=== PATIENT | female | born 1995 | race Caucasian/White ===

== ENCOUNTER 2017-06-19 14:12 | Emergency (ER) | payer OTHER ==
[~2017-06-19] VITALS: Ht 162.6 cm; Wt 74.5 kg
[~2017-06-19 14:12] MED LIST: FERR27TA PO; [UNRECOGNIZED DRUG - OTHER]
[2017-06-19 14:16] VITALS: Ht 162.6 cm; Wt 74.5 kg
[2017-06-19] MEDS ORDERED: HYDROCODONE/APAP (5/325) TAB PO ONE (16:30)
[2017-06-19] MEDS ORDERED: predniSONE 20 MG TAB PO ONE (16:30)
--- NOTE | 2017-06-19 17:15 | ERD ---
ER Documentation Chief Complaint Date/Time DATE: 06/19/17 TIME: 17:09 Chief Complaint Complains of back that radiates to back of leg HPI This is a 21-year-old female who presents the emergency department today complaining of back pain for the past week that goes into her buttocks. States that in October she had something similar and she attributed it to using crutches. Denies any fevers or chills, loss of bowel or bladder control. States that she took Tylenol earlier on in the week but did not help so she stopped taking medication. ROS All systems reviewed and are negative except as per history of present illness. Medications Home Meds Active Scripts Prednisone* (Prednisone*) 20 Mg Tab, 40 MG PO DAILY for 4 Days, TAB Prov:BONNIE DE LA CRUZ PA-C 06/19/17 Tramadol HCl (Tramadol HCl) 50 Mg Tablet, 50 MG PO Q4 Y for PAIN, #20 TAB Prov:BONNIE DE LA CRUZ PA-C 06/19/17 Cyclobenzaprine Hcl* (Cyclobenzaprine Hcl*) 10 Mg Tablet, 10 MG PO QHS, #7 TAB Prov:BONNIE DE LA CRUZ PA-C 06/19/17 Naproxen* (Naprosyn*) 500 Mg Tablet, 500 MG PO BID Y for PAIN AND/OR INFLAMMATION, #30 TAB Prov:BONNIE DE LA CRUZ PA-C 06/19/17 Reported Medications Ferrous Sulfate (Iron) 1 Tab Tablet, 1 TAB PO BID 12/19/12 Pn Vit.w-O Ca #7, Iron,Fa,Dha (Elite Ob Softgel) 1 Cap Capsule 11/05/10 Allergies Allergies: Coded Allergies: Penicillins (Verified Allergy, Mild, RASH, 12/20/10) PMhx/Soc History of Surgery: No Anesthesia Reaction: No Hx Neurological Disorder: No Hx Respiratory Disorders: No Hx Cardiac Disorders: No Hx Psychiatric Problems: No Hx Miscellaneous Medical Probl: No Hx Alcohol Use: No Hx Substance Use: No Hx Tobacco Use: No Physical Exam Vitals Vital Signs Date Time Temp Pulse Resp B/P Pulse Ox O2 Delivery O2 Flow Rate FiO2 06/19/17 14:16 98.7 87 20 124/71 100 Physical Exam Const: NAD Head: Atraumatic Eyes: Normal Conjunctiva ENT: Normal External Ears, Nose and Mouth. Neck: Full range of motion..~ No meningismus. Resp: Clear to auscultation bilaterally Cardio: Regular rate and rhythm, no murmurs Abd: Soft, non tender, non distended. Normal bowel sounds Skin: No petechiae or rashes Back: Lumbar and sacral spine midline tenderness and bilateral paraspinal tenderness. Pulses 2+. Distal neurovascularly intact. Ext: No cyanosis, or edema Neur: Awake and alert Psych: Normal Mood and Affect Results 24 hrs Laboratory Tests Test 06/19/17 17:24 Bedside Urine pH (LAB) 5.5 Bedside Urine Protein (LAB) 1+ Bedside Urine Glucose (UA) Negative Bedside Urine Ketones (LAB) Trace Bedside Urine Blood Negative Bedside Urine Nitrite (LAB) Negative Bedside Urine Leukocyte Esterase (L Negative Current Medications Medications (Trade) Dose Ordered Sig/Lorna Route PRN Reason Start Time Stop Time Status Last Admin Dose Admin Acetaminophen/ Hydrocodone Bitart (Callao (5/325)) 1 tab ONCE ONCE PO 06/19/17 16:30 06/19/17 16:31 DC 06/19/17 17:20 Prednisone (Prednisone) 60 mg ONCE ONCE PO 06/19/17 16:30 06/19/17 16:31 DC 06/19/17 17:19 DIAGNOSTIC IMAGING REPORT Patient: ISAIAS JUNIOR : 1995 Age: 21 Sex: F MR #: [id number] DOS: 06/19/17 0000 Ordering MD: BONNIE DE LA CRUZ PA-C Location: [facility] Room/Bed: PROCEDURE: XR Lumbar Spine. CLINICAL INDICATION: Back pain. Radicular symptoms. TECHNIQUE: X-ray of the lumbar spine were performed including AP, lateral, and coned L5-S1 views was performed. COMPARISON: No prior studies are available for comparison. FINDINGS: SCOLIOSIS: Minimal levoscoliosis. SEGMENTATION: There are 5 non-rib bearing lumbar vertebral bodies. LORDOSIS: Within normal limits. VERTEBRAL BODY HEIGHTS: Maintained without evidence of compression fracture. ALLIGNMENT: There is trace retrolisthesis of L4-5. DISCS: There is mild L5-S1 disc space narrowing. OSSEOUS STRUCTURES: There is no destructive osseous lesion. SACRUM: The bilateral sacroiliac joints are intact. There is a 4 cm oval calcification to the right of the L1 vertebral body with a few adjacent calcifications which are indeterminate. IMPRESSION: No evidence of compression fracture. Minimal levoscoliosis. L4-5 trace retrolisthesis. L5-S1 mild disc space narrowing. There is a 4 cm oval calcification to the right of the L1 vertebral body with a few adjacent calcifications which are indeterminate. Further findings as detailed above. RPTAT: PP .Tino Martin MD, Date Time Electronically viewed and signed by .Tino Martin MD, on 06/19/2017 18:18 .F/ CC: BONNIE DE LA CRUZ PA-C Procedures/MDM This is a 21-year-old female who presents the emergency department today complaining of back pain for the past week. Patient has had history of this similar type pain in the past however patient was complaining of pain into her buttocks and therefore I did offer to obtain images. UA is negative for infection urine test is negative Per the radiology report images of the lumbar spine evidence of acute fracture, compression fracture dislocation. There is mild L5-S1 disc space narrowing. There is a 4 7 m oval calcification in the right of the L1 vertebral body with a few adjacent calcifications which are indeterminate. Images at this time is consistent with sprain versus strain and likely sciatic related pain however her pain may also be due to her disc space narrowing. I have explained this to the patient. I would splint to the patient that she does need a follow-up with a primary care doctor for possible referral to orthopedic designer and physical therapy. Low suspicion for acute fracture or dislocation. Patient is afebrile and otherwise well-appearing. Low suspicion for cauda equina or abscess. Patient declined Toradol here in the emergency department. She was therefore given Callao and prednisone. She will given a prescription for short course of tramadol, Naprosyn, Flexeril, prednisone for home. Started to follow-up with her primary care doctor for referral to orthopedic designer or physical therapy At this time the patient is stable for discharge and outpatient management. Patient should follow up with their PCP in the next 1-2 days. They may return to the emergency department sooner for any persistent or worsening of symptoms. Patient understood and agreed with the plan. Discussed the patient with Dr. Bethea and he is in agreement with the plan. Departure Diagnosis: Primary Impression: Back pain Back pain location: low back pain Chronicity: acute Back pain laterality: bilateral Sciatica presence: with sciatica Sciatica laterality: bilateral sciatica Qualified Code: M54.42 - Acute bilateral low back pain with bilateral sciatica Condition: BONNIE Goins PA-C Jun 19, 2017 17:15
[2017-06-19 17:16] LABS: URINE BLOOD (Dip) POC Negative (NEGATIVE)
--- NOTE | 2017-06-19 18:18 | RADRPT ---
PROCEDURE: XR Lumbar Spine. CLINICAL INDICATION: Back pain. Radicular symptoms. TECHNIQUE: X-ray of the lumbar spine were performed including AP, lateral, and coned L5-S1 views w as performed. COMPARISON: No prior studies are available for comparison. FINDINGS: SCOLIOSIS: Minimal levoscoliosis. SEGMENTATION: There are 5 non-rib bearing lumbar vertebral bodies. LORDOSIS: Within normal limits. VERTEBRAL BODY HEIGHTS: Maintained without evidence of compression fracture. ALLIGNMENT: There is trace retrolisthesis of L4-5. DISCS: There is mild L5-S1 disc space narrowing. OSSEOUS STRUCTURES: There is no destructive osseous lesion. SACRUM: The bilateral sacroiliac joints are intact. There is a 4 cm oval calcification to the right of the L1 vertebral body with a few adjacent calcifications which are indeterminate. IMPRESSION: No evidence of compression fracture. Minimal levoscoliosis. L4-5 trace retrolisthesis. L5-S1 mild disc space narrowing. There is a 4 cm oval calcification to the right of the L1 vertebral body with a few adjacent calcifi cations which are indeterminate. Further findings as detailed above. RPTAT: PP .Tino Martin MD, Date Time Electronically viewed and signed by .Tino Martin MD, on 06/19/2017 18:18 .F/
[2017-06-19] MEDS ORDERED: CYCL-319 PO (18:32)
[2017-06-19] MEDS ORDERED: NAPR-260 PO (18:32)
[2017-06-19] MEDS ORDERED: PRED20TA PO (18:33)
[2017-06-19] MEDS ORDERED: TRAM50TA2 PO (18:33)
== END 2017-06-19 18:48 | disposition home or self-care (01) ==
LOC: FTE 14:12
DX: M54.41 Lumbago with sciatica, right side (principal); M54.42 Lumbago with sciatica, left side
CPT/HCPCS: 72100; 81003; J7512; Z7502; Z7610

== ENCOUNTER 2018-06-03 12:25 | Emergency (ER) | END 2018-06-03 17:30 | disposition home or self-care (01) ==